=== PATIENT | male | born 1975 | race Caucasian/White ===

== ENCOUNTER → 2017-11-02 | Outpatient (REF) | payer OTHER | LOC: M SMT 13:09 | DX: Z30.2 Encounter for sterilization (principal) ==

== ENCOUNTER → 2018-01-18 | Outpatient (REF) | payer OTHER ==
[2018-01-18 13:58] LABS: SEMEN APPEARANCE OPAQUE (OPAQUE); SEMEN VISCOSITY LIQUID (LIQUID)
[2018-01-18 13:59] LABS: IMMMOTILE SPERM CENTRIFUGED ABSENT (ABSENT); IMMOTILE SPERM ABSENT (ABSENT); MOTILE SPERM ABSENT (ABSENT); MOTILE SPERM CENTRIFUGED ABSENT (ABSENT); WBC CONCENTRATION <=1 M/ml (<=1 M/ml)
== END ==
LOC: M SMT 13:50
DX: Z30.2 Encounter for sterilization (principal)

== ENCOUNTER 2020-04-05 09:12 | Emergency (ER) | payer OTHER ==
[~2020-04-05] VITALS: Ht 185.4 cm; Wt 96.1 kg
[2020-04-05] MEDS ORDERED: NS 1,000 ML IV ONE (10:00)
--- NOTE | 2020-04-05 10:20 | REPVR ---
PROCEDURE INFORMATION: Exam: CT Head Without Contrast Exam date and time: 04/05/2020 10:06 AM Age: 45 years old Clinical indication: Syncope and collapse; Additional info: Snycope, loc hit post head TECHNIQUE: Imaging protocol: Computed tomography of the head without contrast. Radiation optimization: All CT scans at this facility use at least one of these dose optimization techniques: automated exposure control; mA and/or kV adjustment per patient size (includes targeted exams where dose is matched to clinical indication); or iterative reconstruction. COMPARISON: CT BRAIN LAB SINUSES 09/13/2014 9:32 AM FINDINGS: Brain: There is no acute intracranial hemorrhage. No extra-axial fluid collection. No evidence of acute infarct. Schroeder white differentiation is intact. There is no evidence of mass. There is no mass effect or midline shift. Ventricles: No ventriculomegaly. Bones/joints: No acute fracture. Sinuses: There is mucosal thickening in bilateral ethmoid air cells and left sphenoid sinus. Please see report of maxillofacial CT. Mastoid air cells: No significant mastoid effusion. Soft tissues: Unremarkable as visualized. IMPRESSION: No evidence of acute intracranial abnormality. Electronically signed by: Paty Hendrickson On 04/05/2020 10:20:17 AM
[2020-04-05 10:56] LABS: BASO % 0.2 % (0.0-1.0); EOS # 0.1 10^3/uL (0.0-0.5); EOS % 0.4 % (0.0-3.0); HEMATOCRIT 47.2 % (42.0-52.0); HEMOGLOBIN 16.1 g/dl (13.5-17.5); LYMPH % 9.1 % (24.0-44.0); MEAN CORPUSCULAR HEMOGLOBIN 30.4 pg (27.0-33.0); MEAN CORPUSCULAR HGB CONC 34.1 g/dl (32.0-36.5); MEAN CORPUSCULAR VOLUME 89.2 fl (80.0-96.0); MONO # 0.8 10^3/uL (0.0-0.8); MONO % 6.8 % (0.0-5.0); NEUTROPHILS # 9.5 10^3/uL (1.5-8.5); NEUTROPHILS % 83.3 % (36.0-66.0); PLATELET COUNT, AUTOMATED 214 10^3/uL (150-450); RED BLOOD COUNT 5.29 10^6/uL (4.30-6.10); WHITE BLOOD COUNT 11.3 10^3/uL (4.0-10.0)
[2020-04-05 11:03] LABS: ALT/SGPT 23 U/L (12-78); BILIRUBIN,DIRECT 0.2 MG/DL (0.0-0.2); BILIRUBIN,TOTAL 0.8 MG/DL (0.2-1.0); CK-MB VALUE MASS < 1.0 NG/ML (<3.6); CPK CREATINE PHOSPHOKINASE 85 U/L (39-308); LIPASE 115 U/L (73-393); MB/CK RELATIVE INDEX 1.18 (< OR =4); TOTAL PROTEIN 7.4 GM/DL (6.4-8.2); TROPONIN I < 0.02 NG/ML (< 0.10)
[2020-04-05] MEDS ORDERED: ISOVUE-370 76% 100ML VIAL As Ordered ONE (11:29)
--- NOTE | 2020-04-05 12:04 | REPVR ---
PROCEDURE INFORMATION: Exam: CT Abdomen And Pelvis With Contrast Exam date and time: 04/05/2020 11:43 AM Age: 45 years old Clinical indication: Abdominal pain; Localized; Lower; Additional info: Bilat lower abd pain, nausea, syncope TECHNIQUE: Imaging protocol: Computed tomography of the abdomen and pelvis with intravenous contrast. Radiation optimization: All CT scans at this facility use at least one of these dose optimization techniques: automated exposure control; mA and/or kV adjustment per patient size (includes targeted exams where dose is matched to clinical indication); or iterative reconstruction. Contrast material: ISOVUE 370; Contrast volume: 100 ml; Contrast route: INTRAVENOUS (IV); COMPARISON: No relevant prior studies available. FINDINGS: Liver: There is approximately 4 mm low-density in left lobe of liver which is likely a small cyst. There is minimal generalized decreased attenuation of liver consistent with minimal diffuse fatty infiltration. Gallbladder and bile ducts: No calcified stones. No ductal dilation. Pancreas: Unremarkable as visualized. No ductal dilation. Spleen: Unremarkable as visualized. No splenomegaly. Adrenals: No evidence of mass. Kidneys and ureters: No visible stones. No hydronephrosis. Stomach and bowel: There are diverticula in left colon. There is focal wall thickening of the proximal sigmoid colon with adjacent inflammatory change. There are diverticula present and this is suspected to relate to acute diverticulitis. Other consideration would be focal colitis. Appendix: The appendix is not definitively identified. However, there is no CT evidence of a right lower quadrant inflammatory process. Intraperitoneal space: There is small amount of fluid in the pelvis. Vasculature: No abdominal aortic aneurysm. Lymph nodes: No enlarged lymph nodes. Bladder: Unremarkable as visualized. Reproductive: Unremarkable as visualized. Bones/joints: Unremarkable. No acute fracture. Soft tissues: Unremarkable for significant finding. IMPRESSION: Wall thickening and inflammatory change of proximal sigmoid colon with diverticula present and likely related to acute diverticulitis although focal colitis also consideration. Follow-up imaging or colonoscopy as deemed clinically appropriate. Small amount of associated free fluid in pelvis. Electronically signed by: Paty Hendrickson On 04/05/2020 12:04:04 PM
[2020-04-05] MEDS ORDERED: CIPROFLOXACIN 500MG TABLET PO ONE (12:30)
[2020-04-05] MEDS ORDERED: metroNIDAZOLE (FLAGYL) 500MG TABLET PO ONE (12:30)
[2020-04-05] MEDS ORDERED: FLAG500T PO (12:34)
[2020-04-05] MEDS ORDERED: CIPR-249 PO (12:34)
[2020-04-05 12:39] VITALS: BP 133/84
--- NOTE | 2020-04-25 12:16 | ECGEPIP ---
[facility] - ED Test Date: 2020-04-05 Pat Name: PATY JOLLEY Department: Room: 4 Gender: Male Windows Desktop Support: MARIO : 1975 Requested By: IGNACIO Order Number: [id number] Reading MD: Genevieve Joshi Measurements Intervals [place] Rate: 64 P: 6 TN: 162 QRS: 20 QRSD: 107 T: 19 QT: 391 QTc: 405 Interpretive Statements SINUS RHYTHM NORMAL ECG SEE SCANNED DOWNTIME REPORT
== END 2020-04-05 12:46 | disposition home or self-care (01) ==
LOC: M ED 09:12
DX: K57.32 Diverticulitis of large intestine without perforation or abscess without bleeding (principal); E78.5 Hyperlipidemia, unspecified
CPT/HCPCS: 36415; 70450; 74177; 80047; 80076; 81001; 82550; 82553; 83690; 84484; 85025; 93005; 96360; 96361; 99284; Q9967

== ENCOUNTER → 2020-08-17 | Outpatient (CLI) | payer OTHER ==
[~2020-08-17] MED LIST: CIPR-249 PO; FLAG500T PO
== END ==
LOC: M LABSMTC 09:41
PROVIDERS: ATTEND Anesthesiology
DX: Z01.812 Encounter for preprocedural laboratory examination (principal); Z20.828 Contact with and (suspected) exposure to other viral communicable diseases

== ENCOUNTER 2020-08-22 11:23 | Day surgery (SDC) | payer OTHER ==
[~2020-08-22] VITALS: Ht 185.4 cm; Wt 98.0 kg
[~2020-08-22 11:23] MED LIST changes: +LIDOCAINE 2% 100MG/5ML SDV (FOR ANES.) As Ordered ONE; +NS 1,000 ML IV ONE; +propofoL 200 MG/20 ML VIAL As Ordered ONE
[2020-08-22] MEDS ORDERED: propofoL 200 MG/20 ML VIAL As Ordered ONE (14:03)
[2020-08-22 14:10] VITALS: BP 128/84
--- NOTE | 2020-08-22 14:22 | ROOR ---
Patient Name: James Figueroa Procedure Date: 08/22/2020 1:34 PM Date of : 1975 Age: 45 Room: [facility] Gender: Male Note Status: Finalized Procedure: Total Colonoscopy to Cecum Indications: Screening for colorectal malignant neoplasm Providers: Rock Hare MD Referring MD: Parker Hale MD Requesting Provider: Medicines: Monitored Anesthesia Care Complications: No immediate complications. Procedure: Pre-Anesthesia Assessment: - The heart rate, respiratory rate, oxygen saturations, blood pressure, adequacy of pulmonary ventilation, and response to care were monitored throughout the procedure. The Colonoscope was introduced through the anus and advanced to the cecum, identified by appendiceal orifice and ileocecal valve. The colonoscopy was performed without difficulty. The patient tolerated the procedure well. The quality of the bowel preparation was excellent. Findings: The perianal and digital rectal examinations were normal. Scattered small-mouthed diverticula were found in the recto-sigmoid colon, sigmoid colon and descending colon. The exam was otherwise without abnormality on direct and retroflexion views. Impression: - Diverticulosis in the recto-sigmoid colon, in the sigmoid colon and in the descending colon. - The examination was otherwise normal on direct and retroflexion views. - No specimens collected. - The exam was otherwise normal to the cecum. Recommendation: - Patient has a contact number available for emergencies. The signs and symptoms of potential delayed complications were discussed with the patient. Return to normal activities tomorrow. Written discharge instructions were provided to the patient. - High fiber diet. - Discharge patient to home. - Continue present medications. - Repeat colonoscopy in 10 years for screening purposes. - Return to referring physician. - The findings and recommendations were discussed with the patient. Procedure Code(s): --- Professional --- 54106, Colonoscopy, flexible; diagnostic, including collection of specimen(s) by brushing or washing, when performed (separate procedure) Diagnosis Code(s): --- Professional --- Z12.11, Encounter for screening for malignant neoplasm of colon K57.30, Diverticulosis of large intestine without perforation or abscess without bleeding CPT copyright 2019 [employer]. All rights reserved. The codes documented in this report are preliminary and upon development spec review may be revised to meet current compliance requirements. Rock Hare MD Rock Hare MD 08/22/2020 2:22:37 PM Electronically signed by Rock Hare MD Number of Addenda: 0 Note Initiated On: 08/22/2020 1:34 PM Estimated Blood Loss: Estimated blood loss: none.
== END 2020-08-22 14:19 | disposition home or self-care (01) ==
LOC: M OPP 11:23
PROVIDERS: ATTEND Internal Medicine Gastroenterology
DX: Z12.11 Encounter for screening for malignant neoplasm of colon (principal); K57.30 Diverticulosis of large intestine without perforation or abscess without bleeding; K57.92 Diverticulitis of intestine, part unspecified, without perforation or abscess without bleeding; Z91.09 Other allergy status, other than to drugs and biological substances

== ENCOUNTER → 2022-09-17 | Outpatient (REF) | payer OTHER ==
[~2022-09-17] MED LIST changes: -LIDOCAINE 2% 100MG/5ML SDV (FOR ANES.) As Ordered ONE; -NS 1,000 ML IV ONE; -propofoL 200 MG/20 ML VIAL As Ordered ONE
== END ==
LOC: M LAB REF 12:22
PROVIDERS: ATTEND Family Medicine
DX: Z12.5 Encounter for screening for malignant neoplasm of prostate (principal)

== ENCOUNTER 2025-06-10 05:19 | Emergency (ER) | payer OTHER ==
[~2025-06-10] VITALS: Ht 185.4 cm; Wt 102.3 kg
[2025-06-10] MEDS: PERCOCET 5MG/325MG TAB PO ONE (06:00)
[2025-06-10] MEDS: KETOROLAC 30 MG/ML 1 ML VIAL IV ONE (07:24)
[2025-06-10 07:36] LABS: BASO # 0.1 10^3/uL (0.0-0.2); BASO % 0.5 % (0.0-1.0); EOS # 0.1 10^3/uL (0.0-0.5); EOS % 1.2 % (0.0-3.0); LYMPH # 1.7 10^3/uL (1.5-5.0); LYMPH % 16.1 % (24.0-44.0); MONO # 0.7 10^3/uL (0.0-0.8); MONO % 6.6 % (2.0-8.0); NEUTROPHILS # 7.8 10^3/uL (1.5-8.5); NEUTROPHILS % 75.2 % (36.0-66.0); PLATELET COUNT, AUTOMATED 313 10^3/uL (150-450)
[2025-06-10 07:56] LABS: C REACTIVE PROTEIN QUANTITATIV 1.21 MG/DL (<1.0)
[2025-06-10 07:57] LABS: CALCIUM LEVEL 8.8 MG/DL (8.5-10.1); CARBON DIOXIDE LEVEL 28.0 MMOL/L (20-31); CHLORIDE LEVEL 104.0 MMOL/L (98-107); CREATININE FOR GFR 1.03 MG/DL (0.70-1.30); GLOMERULAR FILTRATION RATE 88.0 (>56); POTASSIUM SERUM 4.1 MMOL/L (3.5-5.1); SODIUM LEVEL 140.0 MMOL/L (136-145)
[2025-06-10 10:15] VITALS: BP 135/89; TEMP 98.3; O2SAT 97
== END 2025-06-10 10:30 | disposition home or self-care (01) ==
LOC: M ED 05:19
DX: M25.061 Hemarthrosis, right knee (principal); M17.11 Unilateral primary osteoarthritis, right knee; M25.461 Effusion, right knee; E78.5 Hyperlipidemia, unspecified; Z91.048 Other nonmedicinal substance allergy status
CPT/HCPCS: 73564; 76882; 80048; 83605; 85025; 85652; 86140; 87040; 93971; 96374; 99284; J1885

== ENCOUNTER 2025-07-18 23:28 | Emergency (ER) | payer OTHER ==
[~2025-07-18] VITALS: Ht 185.4 cm; Wt 109.5 kg
[2025-07-19] MEDS: NS (Normal Saline) 0.9% 1,000 ML IV ONE (00:15)
[2025-07-19] MEDS: MORPHINE 4 MG/ML 1 ML VIAL IV PRN (00:15)
[2025-07-19] MEDS: ONDANSETRON 4MG/2ML VIAL IV ONE (00:15)
[2025-07-19 00:27] LABS: INR 1.0
[2025-07-19 00:36] LABS: BASO # 0.0 10^3/uL (0.0-0.2); BASO % 0.1 % (0.0-1.0); CALCIUM LEVEL 9.3 MG/DL (8.5-10.1); CARBON DIOXIDE LEVEL 26 MMOL/L (20-31); CHLORIDE LEVEL 99 MMOL/L (98-107); CREATININE FOR GFR 0.96 MG/DL (0.70-1.30); EOS # 0.0 10^3/uL (0.0-0.5); EOS % 0.0 % (0.0-3.0); GLOMERULAR FILTRATION RATE > 90.0 (>56); LYMPH # 0.5 10^3/uL (1.5-5.0); LYMPH % 3.8 % (24.0-44.0); MONO # 0.1 10^3/uL (0.0-0.8); MONO % 0.8 % (2.0-8.0); NEUTROPHILS # 13.4 10^3/uL (1.5-8.5); NEUTROPHILS % 94.9 % (36.0-66.0); PLATELET COUNT, AUTOMATED 317 10^3/uL (150-450); POTASSIUM SERUM 3.9 MMOL/L (3.5-5.1); SODIUM LEVEL 136 MMOL/L (136-145)
[2025-07-19 02:30] VITALS: BP 140/90; TEMP 98.8; O2SAT 97
== END 2025-07-19 03:19 | disposition home or self-care (01) ==
LOC: M ED 23:28
DX: L76.22 Postprocedural hemorrhage of skin and subcutaneous tissue following other procedure (principal); M25.461 Effusion, right knee; Z91.09 Other allergy status, other than to drugs and biological substances
CPT/HCPCS: 73560; 80048; 85025; 85610; 85730; 86850; 86900; 86901; 96374; 99284; J2405